=== PATIENT | female | born 1975 | race Caucasian/White ===

== ENCOUNTER 2017-02-02 00:05 | Emergency (ER) | payer MEDICAID ==
--- NOTE | 2017-02-02 00:27 | ED Physician Chart ---
Chief Complaint/HPI - Patient Information Date Seen:: 02/02/17 Time Seen:: 15:00 Chief Complaint:: right flank pain History of Present Illness:: This patient is a resident [facility] She left the [id number] tonight to go [employer]. She stayed beyond the time of the last bus which could take her back to her facility so she called 911. She states she does not have money for a taxi. Allergies:: Allergies Allergy/AdvReac Type Severity Reaction Status Date / Time No Known Allergies Allergy Verified 03/28/16 15:28 Historian:: Patient, EMS Review:: Nurse's Note Reviewed Review of Systems - Review of Systems General/Constitutional: No fever, No chills Skin: No skin lesions Head: No headache Eyes: No loss of vision ENT: No earache Neck: No neck pain, No swelling Cardio Vascular: No chest pain Pulmonary: Cough GI: No nausea, No vomiting G/U: Other (right flank pain) Musculoskeletal: No bone or joint pain, No back pain, No muscle pain Endocrine: No polyuria, No polydipsia Psychiatric: No prior psych history Hematopoietic: No bruising Allergic/Immuno: No urticaria Neurological: Syncope Past Medical History - Past Medical History Past Medical History: DM, Asthma/COPD, Seizures Family History: None Social History: Non Smoker, No Alcohol Surgical History: None Psychiatricy History: None Medication: Reviewed Family Medical History - Family Member Mother History Unknown: Yes Grandmother History Unknown: Yes Hx Family Hypertension: Yes Physical Exam - Physical Examination General/Constitutional: Well-developed, well-nourished, Alert, No distress Other Gen/Cons comments:: Tremors of upper extremities Head: Atraumatic Eyes: Lids, conjuctiva normal, PERRL Skin: Nl inspection, No rash, No skin lesions, No ecchymosis ENMT: External ears, nose nl, TM canals nl, Nasal exam nl, Lips, teeth, gums nl , Oropharynx nl, Tonsils nl Neck: No nuchal rigidity Respiratory: Nl effort/Exclusion, Clear to Auscultation Cardio Vascular: RRR GI: No tenderness/rebounding/guarding, No organomegaly, No hernia, Nondistended , No mass/bruits : No CVA tenderness Extremities: No tenderness or effusion Neuro/Psych: Alert/oriented Misc: Normal back Labs/Radiology/EKG Results - Lab Results Results: Laboratory Results - last 24 hr 02/02/17 00:15 Urine Source RANDOM Urine Color YELLOW Urine Clarity SLIGHT HAZY Urine pH 6.5 Ur Specific Wiley 1.010 Urine Protein NEGATIVE Urine Glucose (UA) NEGATIVE Urine Ketones NEGATIVE Urine Blood TRACE Urine Nitrate NEGATIVE Urine Bilirubin NEGATIVE Urine Urobilinogen 1.0 Ur Leukocyte Esterase MODERATE H Urine RBC 0-1 Urine WBC 10-25 H Ur Epithelial Cells FEW Urine Bacteria FEW ED Septic Shock - . Is Septic Shock (SBP<90, OR Lactate>4 mmol\L) present?: No Reassessment (Disposition) - Reassessment Reassessment Condition:: Unchanged - Diagnosis Diagnosis:: Urinary tract infection - Aftercare/Follow up Instructions Aftercare/Follow-Up Instructions:: Refer to Discharge Instructions Medication Prescribed:: Keflex 500 mg 4 times a day 1 week - Patient Disposition Discharge/Transfer:: Home Condition at Disposition:: Stable, Unchanged
[2017-02-02 00:53] LABS: URINE BILIRUBIN NEGATIVE (NEGATIVE); URINE COLOR YELLOW; URINE GLUCOSE (UA) NEGATIVE (NEGATIVE); URINE KETONE NEGATIVE (NEGATIVE)
[2017-02-02 00:54] LABS: URINE BACTERIA FEW /hpf (NONE SEEN); URINE BLOOD TRACE (NEGATIVE); URINE EPITHELIAL CELLS FEW /lpf (FEW); URINE PH 6.5; URINE PROTEIN NEGATIVE (NEGATIVE); URINE RBC 0-1 /hpf (0-5)
== END 2017-02-02 07:10 | disposition home or self-care (01) ==
LOC: ER 00:05
DX: N39.0 Urinary tract infection, site not specified (principal); E11.9 Type 2 diabetes mellitus without complications; J44.9 Chronic obstructive pulmonary disease, unspecified; J45.909 Unspecified asthma, uncomplicated
CPT/HCPCS: 81001-TC; 87086-90; Z7502; Z7610

== ENCOUNTER 2017-03-08 22:24 | Emergency (ER) | payer MEDICAID ==
[2017-03-08] MEDS ORDERED: Sodium Chloride 0.9% 1,000 ML IV ONE (22:39)
--- NOTE | 2017-03-08 22:47 | ED Physician Chart ---
Chief Complaint/HPI - Patient Information Date Seen:: 03/08/17 Time Seen:: 22:30 Chief Complaint:: abdominal pain History of Present Illness:: The patient developed abdominal pain vomiting and diarrhea about 1700 today. She vomited twice and had diarrhea twice. Patient denies abdominal pain at present. Patient is 2 months . Allergies:: Allergies Allergy/AdvReac Type Severity Reaction Status Date / Time No Known Allergies Allergy Verified 03/28/16 15:28 Historian:: Patient Review:: Nurse's Note Reviewed Review of Systems - Review of Systems General/Constitutional: No fever, No chills Skin: No skin lesions Head: No headache Eyes: No loss of vision ENT: No earache Neck: No neck pain Cardio Vascular: No chest pain, No palpitations Pulmonary: No SOB GI: Nausea, Vomiting, Diarrhea G/U: No dysuria, No frequency Musculoskeletal: No bone or joint pain Endocrine: No polyuria, No polydipsia Psychiatric: No prior psych history, No depression, No anxiety Hematopoietic: No bruising Allergic/Immuno: No urticaria Neurological: No syncope, No paresthesia Past Medical History - Past Medical History Past Medical History: No significant medical hx Family History: None Social History: Non Smoker, No Alcohol Surgical History: None Psychiatricy History: None Medication: None Family Medical History - Family Member Mother History Unknown: Yes Grandmother History Unknown: Yes Hx Family Hypertension: Yes Physical Exam - Physical Examination General/Constitutional: Well-developed, well-nourished, Alert, No distress Head: Atraumatic Eyes: Lids, conjuctiva normal, PERRL Skin: Nl inspection, No rash, No skin lesions, No ecchymosis ENMT: External ears, nose nl, Lips, teeth, gums nl, Tonsils nl Neck: No nuchal rigidity Respiratory: Nl effort/Exclusion, Clear to Auscultation, No Wheeze/Rhonchi/Rales Cardio Vascular: RRR, No murmur, gallop, rubs GI: No organomegaly, No hernia, Normal BS's, Nondistended, No mass/bruits Other GI comments:: 1/4 epigastric tenderness : No CVA tenderness Extremities: Normal digits & nails Neuro/Psych: No focal deficits Misc: No paraspinal tenderness Labs/Radiology/EKG Results - Lab Results Results: Laboratory Results - last 24 hr 03/08/17 03/08/17 03/08/17 22:47 22:47 22:47 WBC 10.1 RBC 4.13 Hgb 12.7 Hct 37.9 MCV 91.8 MCH 30.7 MCHC Differential 33.5 RDW 13.7 Plt Count 196 MPV 6.9 Neutrophils % 48.8 Lymphocytes % 36.8 Monocytes % 11.2 H Eosinophils % 2.7 Basophils % 0.5 Sodium 134 L Potassium 3.6 Chloride 105 Carbon Dioxide 26.8 Anion Gap 5.8 L BUN 16 Creatinine 0.8 Est GFR ( Amer) > 60.0 Est GFR (Non-Af Amer) > 60.0 BUN/Creatinine Ratio 20.0 Glucose 126 H Calcium 9.6 Magnesium 1.9 Valproic Acid 106.8 H Assessment - Assessment General Assessment: At 2342 patient felt better; no more vomiting. Patient encouraged to drink half Gatorade half water and increase bananas and orange juice in her diet. ED Septic Shock - . Is Septic Shock (SBP<90, OR Lactate>4 mmol\L) present?: No Reassessment (Disposition) - Reassessment Reassessment Condition:: Improved - Diagnosis Diagnosis:: Viral gastroenteritis; intrauterine - Aftercare/Follow up Instructions Aftercare/Follow-Up Instructions:: Refer to Discharge Instructions Medication Prescribed:: Reglan 10 mg #20 to take one 3 times a day when necessary - Patient Disposition Discharge/Transfer:: Home Condition at Disposition:: Stable, Improved
[2017-03-08 22:56] LABS: % BASOPHILS 0.5 % (0.0-2.0); % EOSINOPHILS 2.7 % (0.0-5.0); % LYMPHOCYTES 36.8 % (20.0-50.0); % MONOCYTES 11.2 % (2.0-10.0); % NEUTROPHILS 48.8 % (40.0-80.0); HEMATOCRIT 37.9 % (35.0-45.0); HEMOGLOBIN 12.7 gm/dL (11.7-15.5); MEAN CELL VOLUME 91.8 fl (81-100); MEAN CORPUSCULAR HEMOGLOBIN 30.7 pg (27.0-31.0); MEAN CORPUSCULAR HGB CONC 33.5 pg (28.0-36.0); MEAN PLATELET VOLUME 6.9 fl; NEUTROPHILE ABSOLUTE 4.9 Th/cmm (1.8-8.0); PLATELET COUNT 196 Th/cmm (150-400); RED BLOOD COUNT 4.13 Mil/cmm (3.80-5.10); RED CELL DISTRIBUTION WIDTH 13.7 % (11.5-20.0); WHITE BLOOD COUNT 10.1 Th/cmm (4.8-10.8)
[2017-03-08 23:09] LABS: ANION GAP 5.8 (7.0-16.0); BUN - UREA NITROGEN 16 mg/dL (7-25); CALCIUM SERUM 9.6 mg/dL (8.6-10.3); CARBON DIOXIDE 26.8 mEq/L (21.0-31.0); CHLORIDE 105 mEq/L (98-107); CREATININE - SERUM 0.8 mg/dL (0.6-1.2); GLUCOSE 126 mg/dL (70-105); MAGNESIUM 1.9 mg/dL (1.9-2.7); POTASSIUM SERUM 3.6 mEq/L (3.5-5.1); SODIUM SERUM 134 mEq/L (136-145)
== END 2017-03-09 03:54 | disposition home or self-care (01) ==
LOC: ER 22:24
DX: O99.611 Diseases of the digestive system complicating pregnancy, first trimester (principal); A08.4 Viral intestinal infection, unspecified; Z3A.08 8 weeks gestation of pregnancy
CPT/HCPCS: 36415-UA; 80048-TC; 80164-TC; 83735-TC; 85025-TC; Z7502

== ENCOUNTER 2017-03-10 20:30 | Emergency (ER) | payer MEDICAID ==
--- NOTE | 2017-03-10 20:31 | ED Physician Chart ---
Chief Complaint/HPI - Patient Information Date Seen:: 03/10/17 Time Seen:: 20:31 Chief Complaint:: finger pain History of Present Illness:: 42-year-old female complains of acute, constant, moderate, aching, nonradiating , 6 out of 10, worse with bending, right middle finger pain that happened about 4 hours prior to arrival when she was moving a bed and accidentally bent the finger backwards. Denies numbness, tingling, nausea, vomiting. Allergies:: Allergies Allergy/AdvReac Type Severity Reaction Status Date / Time No Known Allergies Allergy Verified 03/28/16 15:28 Historian:: Patient Review:: Nurse's Note Reviewed Review of Systems - Review of Systems Other: Complete system review otherwise unremarkable except as noted in history of present illness. Past Medical History - Past Medical History Past Medical History: HTN Family History: None Social History: Non Smoker, No Alcohol, No Drug Use, Other Surgical History: None Psychiatricy History: Depression Medication: Reviewed Family Medical History - Family Member Mother History Unknown: Yes Ethnicity: Non- Grandmother History Unknown: Yes Hx Family Hypertension: Yes Physical Exam - Physical Examination Other:: INITIAL VITAL SIGNS: Reviewed by me GENERAL: Alert and interactive. No acute distress HEAD: Head is normocephalic and atraumatic EYES: EOMI. PERRL. No scleral icterus. No conjunctival injection ENT: Moist mucous membranes. NECK: Supple. No masses. Full range of motion RESPIRATORY: No tachypnea. Clear breath sounds bilaterally. No wheezing, rales, or rhonchi CV: Regular rate and rhythm. No murmurs, rubs, or gallops ABDOMEN: Soft, non-distended, non-tender. No guarding. No rebound. No masses. EXTREMITIES: No deformity. No cyanosis. No edema. SKIN: Warm and dry. No obvious rashes. NEUROLOGIC: Alert and oriented. Face is symmetric. Speech is normal. Moves all extremities equally. Motor and sensory distally intact. Labs/Radiology/EKG Results - Radiology Results Results: X-ray right third Finger 2V Interpreted by me: Bones: No fracture Joints: No dislocation Foreign body: None ED Septic Shock - . Is Septic Shock (SBP<90, OR Lactate>4 mmol\L) present?: No Reassessment (Disposition) - Reassessment Reassessment:: Patient has acute right middle finger pain after bending it backwards. No obvious injury on examination. X-ray unremarkable. We did give her ibuprofen here in the ER. Gave her a splint for the middle finger. Applied the splint. Good neurovascular status post splinting of the right middle third fingertip. We advised these are preliminary x-ray interpretations of the finger and may need further Recommend follow-up primary care 1-2 days. Return precautions given. Patient says she understands and agrees the plan. Reassessment Condition:: Improved - Diagnosis Diagnosis:: Acute right finger pain due to acute right finger sprain, third finger, first visit - Aftercare/Follow up Instructions Aftercare/Follow-Up Instructions:: Counseled pt regarding lab results/diagnosis & need follow up, Refer to Discharge Instructions - Patient Disposition Discharge/Transfer:: Home Time:: 21:18 Condition at Disposition:: Improved ED Discharge Plan - Patient Disposition Admit/Discharge/Transfer: PT DISCHARGED HOME Condition at Disposition: Improved Instructions: Finger Sprain, [id number]
--- NOTE | 2017-03-11 08:24 | Diagnostic Imaging Report ---
Exam: Right third finger. 4 views HISTORY: Injury. Findings: Multiple views of the right third finger portably at 2145 hours reviewed the study demonstrates no evidence of fracture dislocation of soft tissue swelling. IMPRESSION: Normal examination right third finger.
== END 2017-03-10 23:18 | disposition home or self-care (01) ==
LOC: ER 20:30
DX: S63.612A Unspecified sprain of right middle finger, initial encounter (principal); I10 Essential (primary) hypertension; X58.XXXA Exposure to other specified factors, initial encounter; Y93.89 Activity, other specified; Y92.89 Other specified places as the place of occurrence of the external cause; Y99.8 Other external cause status
CPT/HCPCS: 73140-TC-F7; Z7502

== ENCOUNTER 2017-10-14 16:41 | Emergency (ER) | payer MEDICAID ==
--- NOTE | 2017-10-14 17:25 | ED Physician Chart ---
ED Chief Complaint/HPI - Patient Information Date Seen:: 10/14/17 Time Seen:: 17:19 Chief Complaint:: Abdominal pain History of Present Illness:: 42 yo female developed abdominal pain for 1 hour. One day prior, she went to ER for chest pain. Denied N/V. Patient also stated that she had pain in right 5th finger with painful ROM. Patient had seizure disorder treated with depakote. Patient takes seroquel for insomnia. Allergies:: Allergies Allergy/AdvReac Type Severity Reaction Status Date / Time No Known Allergies Allergy Verified 03/28/16 15:28 ED Review of Systems - Review of Systems General/Constitutional: No fever Skin: No bruising Head: No headache Eyes: No pain ENT: No earache Neck: No neck pain Cardio Vascular: Chest pain GI: No nausea, No vomiting Musculoskeletal: Other (right hand pain) ED Past Medical History - Past Medical History Past Medical History: DM, Asthma/COPD, Seizures Social History: Non Smoker, No Alcohol, No Drug Use Surgical History: None Family Medical History - Family Member Mother History Unknown: Yes Ethnicity: Non- Grandmother History Unknown: Yes Ethnicity: Non- Hx Family Hypertension: Yes Sister Other Medical History: Leukemia ED Physical Exam - Physical Examination General/Constitutional: Awake, Alert Head: Atraumatic Eyes: PERRL Skin: No ecchymosis ENMT: Nasal exam nl Neck: No nuchal rigidity Respiratory: Clear to Auscultation Cardio Vascular: RRR, No murmur, gallop, rubs, NL S1 S2 Other GI comments:: mild epigastric tenderness Extremities: normal strength in all extremities Neuro/Psych: No focal deficits ED Labs/Radiology/EKG Results - Radiology Results Results: Right 5th finger X ray: no fracture CXR: no consolidation ED Assessment - Assessment General Assessment: Abdominal pain Gastritis Assessment/Comments:: CBC, CMP, lipase, trop I UA, urine drug screen Pantoprazole PO D/c home F/u PCP or return to ER if symptoms worsen ED Septic Shock - . Is Septic Shock (SBP<90, OR Lactate>4 mmol\L) present?: No ED Reassessment (Disposition) - Reassessment Reassessment Condition:: Improved - Patient Disposition Discharge/Transfer:: Home ED Discharge Plan - Patient Disposition Admit/Discharge/Transfer: PT DISCHARGED HOME Condition at Disposition: Stable Instructions: Abdominal Pain, [id number] Additional Instructions: FOLLOW UP WITH YOUR DOCTOR IN 1-2 DAYS AND TO COME BACK TO ER IF SYMPTOMS WORSEN
[2017-10-14 17:54] LABS: % EOSINOPHILS 0.8 % (0.0-5.0); % MONOCYTES 11.1 % (2.0-10.0); % NEUTROPHILS 53.1 % (40.0-80.0); EOSINOPHILE ABSOLUTE 0.1 Th/cmm (0.1-0.4); HEMATOCRIT 40.7 % (41.0-60); HEMOGLOBIN 13.8 gm/dL (12-16); LYMPHOCYTE ABSOLUTE 3.4 Th/cmm (1.5-3.0); MEAN CELL VOLUME 90.4 fl (81-100); MEAN CORPUSCULAR HEMOGLOBIN 30.7 pg (27.0-31.0); MEAN PLATELET VOLUME 7.5 fl; MONOCYTE ABSOLUTE 1.1 Th/cmm (0.3-1.0); NEUTROPHILE ABSOLUTE 5.2 Th/cmm (1.8-8.0); PLATELET COUNT 200 Th/cmm (150-400); RED CELL DISTRIBUTION WIDTH 13.2 % (11.5-20.0); WHITE BLOOD COUNT 9.8 Th/cmm (4.8-10.8)
[2017-10-14 18:12] LABS: ALBUMIN 3.7 gm/dL (3.7-5.3); ALKALINE PHOSPHATASE 82 U/L (34-104); ANION GAP 10.6 (7.0-16.0); BILIRUBIN,TOTAL 0.4 mg/dL (0.3-1.0); BUN - UREA NITROGEN 14 mg/dL (7-25); CALCIUM SERUM 9.9 mg/dL (8.6-10.3); CARBON DIOXIDE 28.6 mEq/L (21.0-31.0); CHLORIDE 107 mEq/L (98-107); GFR AFRICAN-AMERICAN > 60.0 ml/min (>90); GFR NON AFRICAN-AMERICAN > 60.0 ml/min; GLUCOSE 85 mg/dL (70-105); LIPASE 30 U/L (11-82); POTASSIUM SERUM 4.2 mEq/L (3.5-5.1); SGOT 22 U/L (13-39); SGPT/ALT 10 U/L (7-52); SODIUM SERUM 142 mEq/L (136-145); TOTAL PROTEIN,SERUM 7.6 gm/dL (6.0-8.3)
[2017-10-14] MEDS ORDERED: Pantoprazole 40 mg EC Tab PO STA (19:21)
[2017-10-14] MEDS ORDERED: Pantoprazole 40 mg EC Tab PO ONE (19:33)
[2017-10-14 19:35] LABS: URINE MICROSCOPIC INDICATED? YES; URINE SOURCE RANDOM
[2017-10-14 19:40] LABS: URINE BILIRUBIN NEGATIVE (NEGATIVE); URINE BLOOD NEGATIVE (NEGATIVE); URINE GLUCOSE (UA) NEGATIVE (NEGATIVE); URINE KETONE NEGATIVE (NEGATIVE); URINE LEUKOCYTE ESTERASE NEGATIVE (NEGATIVE); URINE NITRATE NEGATIVE (NEGATIVE); URINE PROTEIN NEGATIVE (NEGATIVE)
[2017-10-14 19:43] LABS: URINE CLARITY CLEAR (CLEAR); URINE COLOR YELLOW; URINE EPITHELIAL CELLS NONE SEEN /lpf (FEW); URINE RBC NONE SEEN /hpf (0-5); URINE WBC NONE SEEN /hpf (0-5)
[2017-10-14 19:44] LABS: URINE BACTERIA NONE SEEN /hpf (NONE SEEN)
[2017-10-14 20:22] LABS: AMPHETAMINE URINE NEGATIVE (NEGATIVE); BARBITURATES URINE NEGATIVE (NEGATIVE); COCAINE METABOLITE QUAL URINE NEGATIVE (NEGATIVE); METHAMPHETAMINES QUAL URINE NEGATIVE (NEGATIVE); PHENCYCLIDINE (PCP) URINE NEGATIVE (NEGATIVE); TRICYCLICS (TCA) QUAL. URINE POSITIVE (NEGATIVE)
[2017-10-14 20:23] LABS: BENZODIAZEPINES QUAL URINE NEGATIVE (NEGATIVE); CANNABINOID THC NEGATIVE (NEGATIVE); METHADONE URINE NEGATIVE (NEGATIVE); OPIATES (MORPHINE) QUAL. URINE NEGATIVE (NEGATIVE)
--- NOTE | 2017-10-15 07:34 | Diagnostic Imaging Report ---
Chest x-ray single view History: Shortness of breath The heart size is normal. No focal pulmonary parenchymal processes. No hilar or mediastinal abnormalities. Impression: No acute abnormalities.
--- NOTE | 2017-10-15 08:08 | Diagnostic Imaging Report ---
Right fingers 3 views Indication: Right fifth finger pain Comparison: none Findings: Mild to moderate degenerative changes are seen with areas of osteophytic spurring. There may have been old trauma to the base of the fifth metacarpal. No evidence of an acute fracture, dislocation, or significant focal soft tissue swelling. No gross erosions identified. Impression: No evidence of an acute fracture. [id number] degenerative changes. In the setting of trauma, if clinical symptoms persist and there is continued concern for an occult fracture, follow up exams in 5-7 days is suggested.
== END 2017-10-14 20:30 | disposition home or self-care (01) ==
LOC: ER 16:41
DX: R10.9 Unspecified abdominal pain (principal); E11.9 Type 2 diabetes mellitus without complications; J44.9 Chronic obstructive pulmonary disease, unspecified; J45.909 Unspecified asthma, uncomplicated
CPT/HCPCS: 36415-UA; 71045-TC; 73140-TC-F9; 80053-TC; 80307; 81001-TC; 83690-TC; 83880-TC; 84484-TC; 85025-TC; 93005; Z7610